=== PATIENT | female | born 1975 | race Two or more races ===

== ENCOUNTER 2016-12-31 23:08 | Emergency (ER) | payer MEDICAID ==
[~2016-12-31] VITALS: Ht 154.9 cm; Wt 47.6 kg
[2016-12-31 23:15] VITALS: BP 100/62
--- NOTE | 2016-12-31 23:25 | Emergency Room Report ---
History of Present Illness General Chief Complaint: Substance Abuse Source: Patient, EMS Present Illness HPI This is a 41-year-old female with history of anxiety. She presents with anxiety attack after taking marijuana at all. Mr. first-time taking it. She was anxious and hyperventilating. She was dizzy. She felt better now. No suicidal thought homicidal thought. No other complaint. No nausea no vomiting. Allergies: Coded Allergies: No Known Allergies (Unverified , 12/31/16) Patient History Past Medical History: see triage record, old chart reviewed Past Surgical History: none Pertinent Family History: none Social History: Denies: smoking Last Menstrual Period: 12/31/16 Now: No Immunizations: other Reviewed Nursing Documentation: PMH: Agreed, PSxH: Agreed Nursing Documentation-PMH Past Medical History: No Stated History Review of Systems Eye: Denies: blurred vision, eye pain ENT: Denies: ear pain, nose congestion, throat swelling Respiratory: Denies: cough, shortness of breath Cardiovascular: Denies: chest pain, palpitations Gastrointestinal: Denies: abdominal pain, diarrhea, nausea, vomiting Musculoskeletal: Denies: back pain, joint pain Skin: Denies: rash Neurological: Denies: headache, numbness Endocrine: Denies: increased thirst, increased urine Hematologic/Lymphatic: Denies: easy bruising All Other Systems: negative except mentioned in HPI Physical Exam Vital Signs Date Time Temp Pulse Resp B/P Pulse Ox O2 Delivery O2 Flow Rate FiO2 12/31/16 23:08 97.5 77 16 100/62 100 Room Air vitals normal Sp02 EP Interpretation: reviewed, normal General Appearance: well appearing, no apparent distress, alert Head: normocephalic, atraumatic Eyes: bilateral eye EOMI, bilateral eye PERRL ENT: hearing grossly normal, normal pharynx Neck: full range of motion, supple, no meningismus Respiratory: chest non-tender, lungs clear, normal breath sounds Cardiovascular #1: regular rate, rhythm, no murmur Gastrointestinal: normal bowel sounds, non tender, no mass, no organomegaly, no bruit, non-distended Musculoskeletal: back normal, gait/station normal, normal range of motion Psychiatric: mood/affect normal Skin: warm/dry Medical Decision Making Diagnostic Impression: Primary Impression: Anxiety Additional Impression: Adverse effect of cannabis ER Course Patient presents with adverse affect of marijuana anxiety. She felt better now. We'll discharge home. No suicidal thought homicidal thought. Last Vital Signs Date Time Temp Pulse Resp B/P Pulse Ox O2 Delivery O2 Flow Rate FiO2 12/31/16 23:08 97.5 77 16 100/62 100 Room Air Status: improved Disposition: HOME, SELF-CARE Condition: Stable Additional Instructions: followup with your Dr. in 7 days. Return if worse. EVAN GEIGER M.D. December 31, 2016 23:25
[2016-12-31] MEDS ORDERED: LORazepam 1mg tab ORAL ONE (23:30)
[2017-01-01 00:10] VITALS: BP 101/67
== END 2017-01-01 00:10 | disposition home or self-care (01) ==
LOC: EDBD 23:08 → EMR 23:37
DX: F41.9 Anxiety disorder, unspecified (principal); T40.7X5A Adverse effect of cannabis (derivatives), initial encounter; Y92.89 Other specified places as the place of occurrence of the external cause
CPT/HCPCS: 99282